=== PATIENT | female | born 1965 | race Caucasian/White ===

== ENCOUNTER 2017-05-31 07:36 | Day surgery (SDC) | payer OTHER ==
[~2017-05-31] VITALS: Ht 157.5 cm; Wt 81.4 kg
[~2017-05-31 07:36] MED LIST: ACET1TAB40 PO; DOCU-144 PO
[2017-05-31 08:54] VITALS: Ht 157.5 cm; Wt 81.4 kg
[2017-05-31] MEDS ORDERED: PROPOFOL 20 ML ONE (09:38)
[2017-05-31] MEDS ORDERED: LIDOCAINE 2% (SDV) 5 ML INJ ONE (09:38)
[2017-05-31 09:40] VITALS: BP 125/58; PULSE 53; RESP 18
[2017-05-31 10:40] VITALS: BP 108/69; PULSE 54; RESP 12
--- NOTE | 2017-05-31 12:20 | GILP ---
DATE OF PROCEDURE: 05/31/2017 PROCEDURE PERFORMED: Colonoscopy. SURGEON: Floyd Fuentes MD PREOPERATIVE DIAGNOSIS: Screening colonoscopy. POSTOPERATIVE DIAGNOSES: 1. Colonoscopy all the way to the cecum. 2. Internal hemorrhoids. 3. No colon neoplasm was identified. INDICATION: Ms. See is a 52-year-old female patient was scheduled for screening colonoscopy. The procedure and possible complications were well explained to the patient. She understood and consented to the procedure. DESCRIPTION OF PROCEDURE: Under the influence of anesthesia, the colonoscope was carefully introduced in the rectum and under direct vision it was advanced all the way to the cecum. FINDINGS: The patient had internal hemorrhoids. No colon neoplasm was identified. She tolerated the procedure very well. There was no complications from the procedure. At the end of procedure she was awake with stable vital signs and she was discharged home in care of her family. IMPRESSION: 1. Colonoscopy all the way to the cecum. 2. Internal hemorrhoids. 3. No colon neoplasm was identified. PLAN: Next screening colonoscopy in 10 years. Dictated By: MD THEE Delgado/mellissa/ambar /Document#: [id number]
== END 2017-05-31 12:29 | disposition home or self-care (01) ==
LOC: GIL 07:36
PROVIDERS: ATTEND Internal Medicine Gastroenterology
DX: Z12.11 Encounter for screening for malignant neoplasm of colon (principal); K64.8 Other hemorrhoids
CPT/HCPCS: 45378; Z7610

== ENCOUNTER 2019-01-02 11:05 | Emergency (ER) | payer OTHER ==
[~2019-01-02] VITALS: Wt 84.1 kg
[2019-01-02 11:13] VITALS: BP 166/70; PULSE 72; RESP 20; Wt 84.1 kg
[2019-01-02] MEDS ORDERED: KETOROLAC 30 MG INJ IM STA (11:40)
[2019-01-02] MEDS ORDERED: CEPH-443 PO (13:49)
[2019-01-02] MEDS ORDERED: IBUP-1542 PO (13:49)
[2019-01-02] MEDS ORDERED: TRAM50TA2 PO (13:49)
--- NOTE | 2019-01-02 13:52 | ERD ---
ER Documentation Chief Complaint Chief Complaint LEFT FLANK PAIN [id number] pt on ABX HPI 53-year-old female presents with left back pain for the last 2 weeks. Patient been treated for UTI. She is currently taking Macrobid and states that she is worried about her kidneys because the antibiotics are not helping with her pain. She has a history of recurrent UTIs she states. Denies fevers, vomiting. Patient is pointing to the left lower back area and L4-L5 as her area of pain. ROS All systems reviewed and are negative except as per history of present illness. Medications Home Meds Active Scripts Tramadol HCl (Tramadol HCl) 50 Mg Tablet, 50 MG PO Q4 PRN for PAIN, #18 TAB Prov:JOSE NOBLE MD 01/02/19 Ibuprofen* (Motrin*) 600 Mg Tab, 600 MG PO Q6, #30 TAB Prov:JOSE NOBLE MD 01/02/19 Reported Medications [None] No Conflict Check 05/31/17 Discontinued Scripts Ciprofloxacin Hcl* (Ciprofloxacin Hcl*) 500 Mg Tablet, 500 MG PO BID for 5 Days, TAB Prov:JOSE NOBLE MD 01/02/19 Allergies Allergies: Coded Allergies: Penicillins (Verified Allergy, Intermediate, RASH, 08/15/16) RASH REACTION TO ANCEF IV DURING PROCEDURE morphine (Verified Allergy, Mild, 08/15/16) SENSITIVE/NERVOUS PMhx/Soc Anesthesia Reaction: No Hx Neurological Disorder: No Hx Respiratory Disorders: No Hx Cardiac Disorders: No Hx Psychiatric Problems: No Hx Miscellaneous Medical Probl: No Hx Alcohol Use: No Hx Substance Use: No Hx Tobacco Use: No Smoking Status: Never smoker FmHx Family History: No diabetes, No coronary disease, No other Physical Exam Vitals Vital Signs Date Temp Pulse Resp B/P (MAP) Pulse Ox O2 O2 Flow FiO2 Time Delivery Rate 01/02/19 97.5 72 20 166/70 99 11:13 (102) Physical Exam Const: No acute distress Head: Atraumatic Eyes: Normal Conjunctiva ENT: Normal External Ears, Nose and Mouth. Neck: Full range of motion. No meningismus. Resp: Clear to auscultation bilaterally Cardio: Regular rate and rhythm, no murmurs Abd: Soft, non tender, non distended. Normal bowel sounds Skin: No petechiae or rashes Back: No midline or flank tenderness. Tenderness left L4-5 paraspinous muscles. No CVA tenderness. Ext: No cyanosis, or edema Neur: Awake and alert Psych: Normal Mood and Affect Result Diagram: 01/02/19 1050 01/02/19 1050 Results 24 hrs Laboratory Tests Test 01/02/19 10:50 White Blood Count 6.1 10^3/ul Red Blood Count 5.04 10^6/ul Hemoglobin 14.2 g/dl Hematocrit 43.1 % Mean Corpuscular Volume 85.5 fl Mean Corpuscular Hemoglobin 28.2 pg Mean Corpuscular Hemoglobin Concent 32.9 g/dl Red Cell Distribution Width 13.2 % Platelet Count 304 10^3/UL Mean Platelet Volume 10.0 fl Immature Granulocytes % 0.500 % Neutrophils % 60.5 % Lymphocytes % 29.3 % Monocytes % 7.1 % Eosinophils % 2.1 % Basophils % 0.5 % Nucleated Red Blood Cells % 0.0 /100WBC Immature Granulocytes # 0.030 10^3/ul Neutrophils # 3.7 10^3/ul Lymphocytes # 1.8 10^3/ul Monocytes # 0.4 10^3/ul Eosinophils # 0.1 10^3/ul Basophils # 0.0 10^3/ul Nucleated Red Blood Cells # 0.0 10^3/ul Urine Color YELLOW Urine Clarity CLEAR Urine pH 6.0 Urine Specific [place] 1.016 Urine Ketones NEGATIVE mg/dL Urine Nitrite NEGATIVE mg/dL Urine Bilirubin NEGATIVE mg/dL Urine Urobilinogen NEGATIVE mg/dL Urine Leukocyte Esterase 3+ Jd/ul Urine Microscopic RBC 3 /HPF Urine Microscopic WBC 14 /HPF Urine Bacteria FEW /HPF Urine Hemoglobin NEGATIVE mg/dL Urine Glucose NEGATIVE mg/dL Urine Total Protein NEGATIVE mg/dl Sodium Level 142 mmol/L Potassium Level 4.0 mmol/L Chloride Level 104 mmol/L Carbon Dioxide Level 28 mmol/L Anion Gap 10 Blood Urea Nitrogen 13 mg/dl Creatinine 0.49 mg/dl Est Glomerular Filtrat Rate mL/min > 60 mL/min Glucose Level 103 mg/dl Calcium Level 10.0 mg/dl Total Bilirubin 0.1 mg/dl Direct Bilirubin 0.00 mg/dl Indirect Bilirubin 0.1 mg/dl Aspartate Amino Transf (AST/SGOT) 44 IU/L Alanine Aminotransferase (ALT/SGPT) 55 IU/L Alkaline Phosphatase 117 IU/L Total Protein 8.9 g/dl Albumin 4.9 g/dl Globulin 4.00 g/dl Albumin/Globulin Ratio 1.22 Current Medications Medications Dose Sig/Jah Start Time Status Last (Trade) Ordered Route PRN Stop Time Admin Dose Reason Admin Ketorolac 30 mg ONCE STAT 01/02/19 DC 01/02/19 Tromethamine IM 11:40 01/02/19 12:15 (Toradol) 11:42 500 mg ONCE ONCE 01/02/19 DC 01/02/19 Ciprofloxacin PO 14:00 01/02/19 14:03 (Cipro) 14:01 Procedures/MDM Urine shows white blood cells, red blood cells, leukocyte esterase. CBC and CMP normal. Renal ultrasound shows bilateral hydronephrosis although mild. CT abdomen pelvis shows no acute abnormalities. Patient is status post cho lecystectomy. Patient presents with low back pain despite saying that her kidneys hurt. She does not have pain in the area of the kidneys. She does have signs of UTI despite Macrobid. We will continue Macrobid as she has only taken it for 2 days. We will await urine culture prior to changing medications. We will treat medication for low back pain, ibuprofen and tramadol. urine was sent for culture. She has no signs of pyelonephritis, acute abdomen, renal failure, additional complications. She is advised to return for fevers, vomiting, worsening pain, new worsening symptoms with primary care doctor. The patient was stable with no new complaints during the ER course. Clinically, there is no current evidence to suggest meningitis, sepsis, acute abdomen, pneumonia, stroke, acute coronary syndrome, pulmonary embolism, aortic dissection or any other emergent condition appearing to require further evaluation or hospitalization. Patient counseled regarding my diagnostic impression and care plan. Prior to discharge all questions answered. Pt agrees with treatment plan and understands strict return precautions. Pt is instructed to follow up with primary care provider within 24-48 hours. Precautionary instructions provided including instructions to return to the ER if not improving or for any worsening or changing symptoms or concerns. Departure Diagnosis: Primary Impression: Back pain Back pain location: low back pain Chronicity: acute Back pain laterality: right Sciatica presence: without sciatica Qualified Codes: M54.5 - Low back pain Additional Impression: Genitourinary symptoms Condition: Stable Patient Instructions: Back Pain (Acute Or Chronic) Additional Instructions: nasras a contiua tratamiento pat infeccion kiran probablamente dolor es de musculos. huesos. Cheque otro vez con [place] doctor primario en el proximo [place] or regresa para mas o nueva simptomas. JOSE NOBLE MD Jan 02, 2019 13:52
[2019-01-02] MEDS ORDERED: CIPR500T4 PO (13:56)
[2019-01-02] MEDS ORDERED: CIPROFLOXACIN 500 MG TAB PO ONE (14:00)
== END 2019-01-02 14:09 | disposition home or self-care (01) ==
LOC: FTE 11:05
DX: M54.5 Low back pain (principal); R39.9 Unspecified symptoms and signs involving the genitourinary system
CPT/HCPCS: 74176; 76775; 80053; 81001; 85025; 87086; 96372; J1885; Z7502

== ENCOUNTER 2019-01-06 20:25 | Emergency (ER) | payer OTHER ==
[~2019-01-06] VITALS: Ht 157.5 cm; Wt 86.0 kg
[~2019-01-06 20:25] MED LIST changes: -ACET1TAB40 PO; -DOCU-144 PO; +IBUP-1542 PO; +TRAM50TA2 PO
[2019-01-06 20:35] VITALS: Ht 157.5 cm; Wt 86.0 kg
--- NOTE | 2019-01-06 21:16 | ERD ---
ER Documentation Chief Complaint Chief Complaint sent by urgent care d/t hematuria & fever x 1 day HPI 53-year-old female, presents the emergency department with acute onset of high fever, runny nose, chest congestion, dry cough and general malaise that started 2 days ago. The patient has been receiving [id number] medications without improvement of the symptoms. Otherwise, no shortness of breath, no rashes, no diarrhea or constipation. Per mother, patient acting age-appropriate, adequate oral intake, normal diuresis, normal bowel movements. ROS All systems reviewed and are negative except as per history of present illness. Medications Home Meds Active Scripts Ibuprofen* (Motrin*) 400 Mg Tab, 400 MG PO Q8, #15 TAB Prov:NELLY MAYO MD 01/06/19 Acetaminophen* (Tylenol*) 325 Mg Tablet, 2 TAB PO Q8 PRN for PAIN AND OR ELEVATED TEMP, #20 TAB Prov:NELLY MAYO MD 01/06/19 Oseltamivir Phosphate* (Tamiflu*) 75 Mg Capsule, 75 MG PO BID for 5 Days, CAP Prov:NELLY MAYO MD 01/06/19 Tramadol HCl (Tramadol HCl) 50 Mg Tablet, 50 MG PO Q4 PRN for PAIN, #18 TAB Prov:JOSE NOBLE MD 01/02/19 Ibuprofen* (Motrin*) 600 Mg Tab, 600 MG PO Q6, #30 TAB Prov:JOSE NOBLE MD 01/02/19 Reported Medications [None] No Conflict Check 05/31/17 Discontinued Scripts Ciprofloxacin Hcl* (Ciprofloxacin Hcl*) 500 Mg Tablet, 500 MG PO BID for 5 Days, TAB Prov:JOSE NOBLE MD 01/02/19 Allergies Allergies: Coded Allergies: Penicillins (Verified Allergy, Intermediate, RASH, 08/15/16) RASH REACTION TO ANCEF IV DURING PROCEDURE morphine (Verified Allergy, Mild, 08/15/16) SENSITIVE/NERVOUS PMhx/Soc Anesthesia Reaction: No Hx Neurological Disorder: No Hx Respiratory Disorders: No Hx Cardiac Disorders: No Hx Psychiatric Problems: No Hx Miscellaneous Medical Probl: No Hx Alcohol Use: No Hx Substance Use: No Hx Tobacco Use: No Physical Exam Vitals Vital Signs Date Temp Pulse Resp B/P (MAP) Pulse Ox O2 O2 Flow FiO2 Time Delivery Rate 01/06/19 101.3 21:44 01/06/19 101.3 21:42 01/06/19 101.3 21:42 01/06/19 102.0 102 16 125/58 95 20:35 (80) Physical Exam Patient is in moderate distress due to cough and fever, vital signs showed fever. EYES: PERRLA, EOMI, injected sclerae EARS: Canals clear, erythematous tympanic membranes THROAT: Erythematous oropharynx. NECK: Supple, No lymphadenopathy. Full ROM without pain or tenderness. HEART: RRR, no rubs, murmurs, clicks or gallops. LUNGS: Bilateral rhonchi to auscultation. ABDOMEN: Soft, non-tender without masses or hepatosplenomegaly. EXTREMITIES: No edema bilaterally. BACK: Full ROM, no deformity, normal back exam NEURO: Cranial nerves grossly intact, no motor or sensory deficit Result Diagram: 01/06/19212901/06/192129 Results 24 hrs Laboratory Tests Test 01/06/19 21:30 White Blood Count 4.2 10^3/ul Red Blood Count 4.48 10^6/ul Hemoglobin 12.9 g/dl Hematocrit 38.7 % Mean Corpuscular Volume 86.4 fl Mean Corpuscular Hemoglobin 28.8 pg Mean Corpuscular Hemoglobin Concent 33.3 g/dl Red Cell Distribution Width 13.2 % Platelet Count 221 10^3/UL Mean Platelet Volume 10.4 fl Immature Granulocytes % 0.700 % Neutrophils % 68.5 % Lymphocytes % 18.9 % Monocytes % 11.5 % Eosinophils % 0.2 % Basophils % 0.2 % Nucleated Red Blood Cells % 0.0 /100WBC Immature Granulocytes # 0.030 10^3/ul Neutrophils # 2.9 10^3/ul Lymphocytes # 0.8 10^3/ul Monocytes # 0.5 10^3/ul Eosinophils # 0.0 10^3/ul Basophils # 0.0 10^3/ul Nucleated Red Blood Cells # 0.0 10^3/ul Urine Color STRAW Urine Clarity CLEAR Urine pH 6.0 Urine Specific [place] 1.005 Urine Ketones NEGATIVE mg/dL Urine Nitrite NEGATIVE mg/dL Urine Bilirubin NEGATIVE mg/dL Urine Urobilinogen NEGATIVE mg/dL Urine Leukocyte Esterase TRACE Jd/ul Urine Microscopic RBC 1 /HPF Urine Microscopic WBC 1 /HPF Urine Bacteria FEW /HPF Urine Hemoglobin 2+ mg/dL Urine Glucose NEGATIVE mg/dL Urine Total Protein NEGATIVE mg/dl Sodium Level 136 mmol/L Potassium Level 4.0 mmol/L Chloride Level 100 mmol/L Carbon Dioxide Level 26 mmol/L Anion Gap 10 Blood Urea Nitrogen 11 mg/dl Creatinine 0.62 mg/dl Est Glomerular Filtrat Rate mL/min > 60 mL/min Glucose Level 120 mg/dl Calcium Level 9.4 mg/dl Current Medications Medications Dose Sig/Jah Start Time Status Last (Trade) Ordered Route PRN Stop Time Admin Dose Reason Admin Sodium 1,000 ml @ Q2H STAT 01/06/19 01/06/19 Chloride 500 mls/hr IV 21:22 01/06/19 21:43 23:21 1,000 mg ONCE STAT 01/06/19 DC 01/06/19 Acetaminophen PO 21:22 01/06/19 21:42 (Tylenol 21:27 Tab) Ibuprofen 600 mg ONCE STAT 01/06/19 DC 01/06/19 (Motrin) PO 21:22 01/06/19 21:42 21:27 Oseltamivir 75 mg ONCE STAT 01/06/19 DC 01/06/19 Phosphate PO 21:22 01/06/19 21:41 (Tamiflu) 21:27 Oseltamivir 75 mg ONCE ONCE 01/06/19 UNV Phosphate PO 22:30 01/06/19 (Tamiflu) 22:31 Name: KYRIE ISRAEL Age/Sex: 53/F Attend Dr: NELLY BORRERO Acct: [id number] MR# : [id number] : [id number] Location: [facility] Admit: 01/06/19 ------ Specimen: [id number] Status: Complete Codie: 01/06/19 Rcvd: 01/06/19 Source: ROEL Sp Descrip: Procedure Result Microbiology INFLUENZA A & B BY EIA Final INFLU A&B BY EIA INFLUENZA A POSITIVE (Ref Range Neg) INFLUENZA B NEGATIVE (Ref Range Neg) Phoned to AVINASH MANCUSO,RN @[id number],RIG Procedures/MDM At the time of discharge, patient with nontoxic appearance, vital signs stable, no respiratory distress. Differential diagnosis include but not limited to: Respiratory infection bacterial/viral/fungal. Asthma/COPD, pneumonitis, allergies, GERD. Less likely foreign body aspiration, cardiac related, aspiration pneumonia, malignancy. Physical examination and clinical presentation consistent most likely with influenza. During the ED course the patient remained stable, fever resolved with medications given in the ER, no new complaints. Clinical impression discussed with patient who agrees with management. The patient is stable to be treated outpatient and will be discharged home with a Rx for antiviral medication and ibuprofen, antibiotics not indicated at this time. Some side effects of prescribed medications (headache, rash, nausea, vomiting, diarrhea, drowsiness, habituation, bleeding, hypertension, interactions with other medications) were reviewed. The patient was instructed to follow up with the primary care provider in the next 48h. If symptoms persist, worsen or new symptoms develop, then patient should return to the ED immediately. Disclaimer: Inadvertent spelling and grammatical errors are likely due to EHR/dictation software use and do not reflect on the overall quality of patient care. Also, please note that the electronic time recorded on this note does not necessarily reflect the actual time of the patient encounter. Departure Diagnosis: Primary Impression: Influenza A Condition: Stable Additional Instructions: Muchas marcin por [facility] para [place] servicio. Esperamos que en [place] visita a la kelly de emergencia [place] problema medico haya sido solucionado y que se sienta mucho mejor. Para estar seguros que [place] mejoria sigue en proceso, le pedimos el favor de hacer radha mikey de seguimiento medico con [place] doctor primario en los proximos 2-4 stevens. Lleve con usted estos documentos y las medicinas recetadas. Si [place] sintomas empeoran, NO SE ESPERE, por favor regrese a kelly de emergencia INMEDIATAMENTE. En [place] que usted no tenga un mdico de atencin primaria: Llame al mdico o clnica comunitaria de referencia que aparece abajo yvonne las horas de consultorio para hacer radha mikey para que le vean. CLINICAS: [facility] [phone] [address] [facility] 239 [phone] [address] [facility] 464 [phone] [address] [facility] [phone] [address] [facility]. [facility] 360 [phone] [facility]. [phone] [place] Jan 06, 2019 21:16
[2019-01-06] MEDS ORDERED: SOD CHLORIDE 0.9% 1,000 ML IV STA (21:22)
[2019-01-06] MEDS ORDERED: IBUPROFEN 600 MG TAB PO STA (21:22)
[2019-01-06] MEDS ORDERED: ACETAMINOPHEN 500 MG TAB PO STA (21:22)
[2019-01-06] MEDS ORDERED: OSELTAMIVIR 75 MG CAP PO STA (21:22)
[2019-01-06] MEDS ORDERED: OSELTAMIVIR 75 MG CAP PO ONE (22:30)
[2019-01-06] MEDS ORDERED: OSEL75CA23 PO (22:40)
[2019-01-06] MEDS ORDERED: IBUP-1561 PO (22:40)
[2019-01-06] MEDS ORDERED: ACET325T33 PO (22:40)
[2019-01-06 23:04] VITALS: BP 113/62; PULSE 78; RESP 18
== END 2019-01-06 23:05 | disposition home or self-care (01) ==
LOC: FTE 20:25
DX: J10.1 Influenza due to other identified influenza virus with other respiratory manifestations (principal)
CPT/HCPCS: 36415; 80048; 81001; 85025; 87086; 87400; J7030; Z7502; Z7610